=== PATIENT | male | born 1985 | race African-American/Black ===

== ENCOUNTER 2024-12-09 11:52 | Inpatient (IN) | payer MEDICAID, OTHER ==
[~2024-12-09] VITALS: Ht 175.3 cm; Wt 120.1 kg
--- NOTE | 2024-12-09 13:07 | ED.PDOC ---
History of Present Illness HPI Comments 39-year-old male presents to the ER with primary care history of hypertension in the chief complaint of high blood pressure. Reports on having high blood pressure for the past three days associated with dizziness, neck pain and a headache. His PCP is Dr. Alcantar in his and has a an appointment tomorrow but stated that the pain was so severe he went to urgent care and they informed him to come to the ER. Patient notes the he has been taking his prescribed medications per not working and thinks I need a higher dose . Denies chills, fever, N/V/D, SOB, CP. No other associated symptoms, modifiers, recent injuries or sick contacts present at this time. Chief Complaint: High Blood Pressure Time Seen by MD: 13:05 Reviewed Notes: Nurses Notes, Medications, Allergies Allergies: Coded Allergies: NO KNOWN ALLERGIES (Unverified , 12/09/24) Information Source: Patient Mode of Arrival: Ambulatory Severity: Moderate Timing: Days Duration: Since onset, Days Prehospital treatment: None Past Medical History PAST MEDICAL HISTORY: HTN, Denies Surgical History: Denies all surgeries Family History Family History: Reviewed,noncontributory to illness, Unknown Social History Smoker: Non-Smoker Alcohol: Denies ETOH Use Drugs: Denies Drug Use Lives In: Home Constitutional: denies: chills, diaphoresis, fatigue, fever, malaise, sweats, weakness, others EENTM: denies: blurred vision, double vision, ear bleeding, ear discharge, ear drainage, ear pain, ear ringing, eye pain, eye redness, hearing loss, mouth pain, mouth swelling, nasal discharge, nose bleeding, nose congestion, nose pain, photophobia, tearing, throat pain, throat swelling, voice changes, others Respiratory: denies: cough, hemoptysis, orthopnea, SOB at rest, shortness of breath, SOB with excertion, stridor, wheezing, others Cardiovascular: denies: chest pain, dizzy spells, diaphoresis, Dyspnea on exertion, edema, irregular heart beat, left arm pain, lightheadedness, palpitations, PND, syncope, others Gastrointestinal: denies: abdomen distended, abdominal pain, blood streaked bowels, constipated, diarrhea, dysphagia, difficulty swallowing, hematemesis, melena, nausea, poor appetite, poor fluid intake, rectal bleeding, rectal pain, vomiting, others Genitourinary: denies: burning, dysuria, flank pain, frequency, hematuria, incontinence, penile discharge, penile sore, pain, testicle pain, testicle swelling, urgency, others Neurological: reports: dizziness, headache; denies: fainting, left sided numbness, left sided weakness, numbness, paresthesia, pre-existing deficit, right sided numbness, right sided weakness, seizure, speech problems, tingling, tremors, weakness, others Musculoskeletal: reports: neck pain; denies: back pain, gout, joint pain, joint swelling, muscle pain, muscle stiffness, others Integumetry: denies: bruises, change in color, change in hair/nails, dryness, laceration, lesions, lumps, rash, wounds, others Allergic/Immunocompromised: denies: Difficulty Healing, Frequent Infections, Hives, Itching, others Hematologic/Lymphatic: denies: anemia, blood clots, easy bleeding, easy bruising, swollen glands, others Endocrine: denies: excessive hunger, excessive sweating, excessive thirst, excessive urination, flushing, intolerance to cold, intolerance to heat, unexplained weight gain, unexplained weight loss, others Psychiatric: denies: anxiety, bipolar disorder, depression, hopeless, panic disorder, schizophrenia, sleepless, suicidal, others All Other Systems: Reviewed and Negative Physical Exam General Appearance: No Apparent Distress, Normal HEENT: Normal ENT Inspection, Pharynx Normal, TMs Normal Neck: Full Range of Motion, Non-Tender, Normal, Normal Inspection Respiratory: Chest Non-Tender, Lungs Clear, No Accessory Muscle Use, No Respiratory Distress, Normal Breath Sounds Cardiovascular: No Edema, No JVD, No Murmur, No Gallop, Normal Peripheral Pulses, Regular Rate/Rhythm Breast Exam: Deferred Gastrointestinal: No Organomegaly, Non Tender, No Pulsatile Mass, Normal Bowel Sounds, Soft Genitalia: Deferred Pelvic: Deferred Rectal: Deferred Extremities: No calf tenderness, Normal capillary refill, Normal inspection, Normal range of motion, Non-tender, No pedal edema Musculoskeletal : Apperance: Normal Neurologic: Alert, watch dial stoner II-XII nml as Tested, No Motor Deficits, Normal Affect, Normal Mood, No Sensory Deficits Cerebellar Function: Normal Reflexes: Normal Skin: Dry, Normal Color, Warm Lymphatic: No Adenopathy Was a procedure done? Was a procedure done?: No Differential Dx Considerations may include: ACS, CVA, hypertensive emergency, electrolyte mi, infectious etiology X-Ray, Labs, Meds, VS Vital Signs Date Time Temp Pulse Resp B/P (MAP) Pulse Ox O2 Delivery O2 Flow Rate FiO2 12/09/24 15:09 159/110 12/09/24 15:05 98 18 97 Room Air 12/09/24 14:47 98 18 159/110 (126) 97 169/105 (126) 12/09/24 11:54 98.3 109 18 157/103 95 98.3 151/100 Lab Test 12/09/24 15:14 12/09/24 14:27 12/09/24 13:29 Range/Units Urine Color Yellow Yellow Urine Clarity Clear Clear Urine pH 5.5 5.0-9.0 Urine Specific [place] 1.026 1.001-1.035 Urine Protein Trace H Negative Urine Ketones Trace Negative Urine Blood Negative Negative /uL Urine Nitrite Negative Negative Urine Bilirubin Negative Negative Urine Urobilinogen Normal Negative mg/dL Urine Leukocyte Esterase Negative Negative /uL Urine RBC 1 0 - 3 /hpf Urine Microscopic WBC 5 H 0-3 /HPF Urine Squamous Epithelial Cells Few <5 /hpf Urine Bacteria None seen None Seen /hpf Urine Mucus Few None Seen Urine Glucose Normal Normal mg/dL Troponin I High Sensitivity 5 3 L </=54 ng/L White Blood Count 15.6 H 4.4-10.8 10^3/uL Red Blood Count 6.32 H 4.5-5.90 10^6/uL Hemoglobin 17.5 13.5-17.5 g/dL Hematocrit 50.2 41.0-53.0 % Mean Corpuscular Volume 79.4 L 80.0-100.0 fL Mean Corpuscular Hemoglobin 27.7 L 28.0-32.0 pg Mean Corpuscular Hemoglobin Concent 34.9 32.0-36.0 g/dL Red Cell Distribution Width 14.9 H 11.8-14.3 % Platelet Count 320 140-450 10^3/uL Mean Platelet Volume 7.7 6.9-10.8 fL Neutrophils (%) (Auto) 62.0 37.0-80.0 % Lymphocytes (%) (Auto) 26.7 10.0-50.0 % Monocytes (%) (Auto) 7.0 0.0-12.0 % Eosinophils (%) (Auto) 3.1 0.0-7.0 % Basophils (%) (Auto) 1.2 0.0-2.0 % Neutrophils # (Auto) 9.7 H 1.6-8.6 10 ^3/uL Lymphocytes # (Auto) 4.2 0.4-5.4 10 ^3/uL Monocytes # (Auto) 1.1 0-1.3 10 ^3/uL Eosinophils # (Auto) 0.5 0-0.8 10 ^3/uL Basophils # (Auto) 0.2 0-0.2 10 ^3/uL Nucleated Red Blood Cells 0.5 % Sodium Level 142 136-145 mmol/L Potassium Level 3.6 3.5-5.1 mmol/L Chloride Level 108 H 98-107 mmol/L Carbon Dioxide Level 26 20-31 mmol/L Anion Gap 8 5-15 Blood Urea Nitrogen 10 9-23 mg/dL Creatinine 1.36 H 0.700-1.30 mg/dL Glomerular Filtration Rate Calc 68 >90 mL/min BUN/Creatinine Ratio 7.4 L 10.0-20.0 Serum Glucose 87 74-106 mg/dL Calcium Level 9.6 8.7-10.4 mg/dL Current Medications Medications (Trade) Dose Ordered Sig/Poonam Route Start Time Stop Time Status Last Admin Hydralazine HCl (Apresoline Injection) 20 mg ONCE ONCE IV 12/09/24 13:15 12/09/24 13:16 DC 12/09/24 15:09 Acetaminophen (Tylenol Tablet) 650 mg ONCE ONCE PO 12/09/24 16:00 12/09/24 16:01 DC 12/09/24 16:09 Time of 1ST Reevaluation: 13:35 Reevaluation 1ST: Unchanged Patient Education/Counseling: Diagnosis, Treatment, Prognosis Family Education/Counseling: No Family Present SEPSIS Sepsis Screen Date sepsis recognized/suspect: Dec 09, 2024 Time Sepsis recognized/suspect: 1154 Recent Procedure: No On Antibiotic Therapy: No Respiratory Rate >20: No Heart Rate >90: Yes Temp<36 C (96.8 F) or >38.3 C: No SBP <90 or MAP <65 mmHG: No New Acute Mental Status Change: No Is the patient on CPAP, BIPAP,: No Physician Orders Chest Portable (12/09/24 13:09) Head Without Contrast (12/09/24 13:09) Electrocardigram (12/09/24 13:09) Troponin-I Hs (12/09/24 16:09) Electrocardigram (12/09/24 14:09) Electrocardigram (12/09/24 16:09) Vital Signs Date Time Temp Pulse Resp B/P (MAP) Pulse Ox O2 Delivery O2 Flow Rate FiO2 12/09/24 15:09 159/110 12/09/24 15:05 98 18 97 Room Air 12/09/24 14:47 98 18 159/110 (126) 97 169/105 (126) 12/09/24 11:54 98.3 109 18 157/103 95 98.3 151/100 Laboratory Tests Test 12/09/24 13:29 White Blood Count 15.6 10^3/uL (4.4-10.8) H Medications Medications Dose Ordered Sig/Poonam Route Start Time Stop Time Status Last Admin Dose Admin Acetaminophen 650 mg ONCE ONCE PO 12/09/24 16:00 12/09/24 16:01 DC 12/09/24 16:09 Hydralazine HCl 20 mg ONCE ONCE IV 12/09/24 13:15 12/09/24 13:16 DC 12/09/24 15:09 Departure 1 Departure Time of Disposition: 16:27 (Patient presented with hypertension and symptoms concerning for hypertensive emergency. Patient is receiving iv blood pressure medications requiring intensive monitoring. Data: 1. I ordered and reviewed the result of at least 3 labs including a CBC, BMP, and Urinalysis. 2. I independently interpreted the following tests: CT Brain: Which appears benign. EKG which is Normal Sinus RhythmRisk:This patient has a high risk of morbidity due to further diagnostic testing or treatment and may suffer from an acute cardiac disorder. Workup reveals hypertensive emergency and patient should be admitted for further workup. and possible expert consultation. ) Impression: Primary Impression: Hypertensive urgency Additional Impressions: Migraine Acute chest pain Disposition: ADMITTED INPATIENT Admit to: Tele Condition: Guarded Critical Care Note Critical Care Time?: Yes Critical care comment: Hypertensive emergency Authorized and Performed by: Joe Aguillon MD Total critical care time: Approximately 39 minutes Due to a high probability of clinically significant, life threatening deterioration, the patient required my highest level of preparedness to intervene emergently and I personally spent this critical care time directly and personally managing the patient. This critical care time included obtaining a history; examining the patient; pulse oximetry; ordering and review of studies; arranging urgent treatment with development of a management plan; evaluation of patient's response to treatment; frequent reassessment; and, discussions with other providers. This critical care time was performed to assess and manage the high probability of imminent, life-threatening deterioration that could result in multi-organ failure. It was exclusive of separately billable procedures and treating other patients and teaching time. Please see my other sections and the rest of the note for further information on patient assessment and treatment. Stability Stability form required: No I personally scribed for JOE AGUILLON MD ([email or web address]) on 12/09/24 at 13:07. Electronically submitted by Kenji Scanlon ([email or web address]). JOE AGUILLON MD Dec 09, 2024 13:07
--- NOTE | 2024-12-09 13:42 | DVH ---
EXAM: CT HEAD WITHOUT CONTRAST INDICATION: htn TECHNIQUE: CT images of the head were obtained without administration of IV contrast. CT scans at [facility] facility use dose modulation, iterative reconstruction, and/or weight based dosing when appropriate to reduce radiation dose to as low as reasonably achievable. COMPARISON: None FINDINGS: PARENCHYMA: No acute hemorrhage. There is no mass effect, midline shift, or herniation. There is pres ervation of the mos[place] white differentiation. VENTRICLES: No hydrocephalus. EXTRA-AXIAL SPACES: No extra-axial fluid collections. OTHER: The bony structures are intact. Visualized portions of the paranasal sinuses and mastoid air cells are clear. IMPRESSION: 1. No CT evidence of an acute intracranial abnormality.
[2024-12-09 13:46] LABS: Hematocrit 50.2 % (41.0-53.0); Hemoglobin 17.5 g/dL (13.5-17.5); Mean Corpuscular Hemoglobin 27.7 pg (28.0-32.0); Mean Corpuscular Volume 79.4 fL (80.0-100.0); Nucleated Red Blood Cells % 0.5 %
--- NOTE | 2024-12-09 13:51 | DVH ---
EXAM: XY CHEST PORTABLE HISTORY: htn COMPARISON: None TECHNIQUE: Portable AP view of the chest was performed. FINDINGS: No pneumothorax, consolidative infiltrates, or pulmonary edema. The heart is not enlarged. There is t horacic dextroscoliosis. IMPRESSION: No acute intrathoracic process.
[2024-12-09 14:06] LABS: Potassium 3.6 mmol/L (3.5-5.1); Sodium 142 mmol/L (136-145)
[2024-12-09 14:07] LABS: Anion Gap 8 (5-15); Carbon Dioxide 26 mmol/L (20-31)
[2024-12-09 14:08] LABS: Calcium 9.6 mg/dL (8.7-10.4)
[2024-12-09 14:12] LABS: Chloride 108 mmol/L (98-107); Glucose 87 mg/dL (74-106)
[2024-12-09 14:13] LABS: BUN/Creatinine Ratio 7.4 (10.0-20.0); Blood Urea Nitrogen 10 mg/dL (9-23)
[2024-12-09] MEDS: hydrALAZINE HCL 20 MG/ML VL IV ONE (15:09)
[2024-12-09 15:25] LABS: Urine Protein, UAD TRACE (Negative)
[2024-12-09] MEDS: ACETAMINOPHEN 325 MG TAB PO ONE (16:09)
[2024-12-09] MEDS: SODIUM CHLORIDE 0.9% 1,000 ML IV ONE (16:37)
[2024-12-09 18:46] VITALS: PULSE 111; RESP 17; O2SAT 98
[2024-12-09] MEDS ORDERED: ONDANSETRON HCL 4 MG/2 ML VIAL IV PRN (19:30)
[2024-12-09] MEDS ORDERED: TEMAZEPAM 15 MG CAP PO PRN (19:30)
[2024-12-09] MEDS: HYDROcodone-ACET 5/325MG TAB PO ONE (19:46)
[2024-12-09] MEDS: LABETALOL HCL 20 MG/4 ML VL IV ONE (19:49)
[2024-12-09 22:02] LABS: Cannabinoid Screen, Urine Pos (NEGATIVE)
[2024-12-09 22:05] LABS: Amphetamine Screen, Urine Neg (NEGATIVE); Barbiturate Scree,Urine Neg (NEGATIVE); Benzodiazephine Screen, Urine Neg (NEGATIVE); Cocaine Screen, Urine Neg (NEGATIVE); Opiate Scree,Urine Neg (NEGATIVE); Phencyclidine Screen, Urine Neg (NEGATIVE)
--- NOTE | 2024-12-09 22:54 | DVHHP2 ---
History of Present Illness Reason for Visit: Hypertension History of Present Illness 39-year-old male presents for evaluation of hypertension. Patient reports a three day history of uncontrolled hypertension. He reports being compliant with his antihypertensives. He reports having a an appointment with his primary care provider until tomorrow. Today he became really dizzy with a headache so he presented for further evaluation. Denies chest pain or shortness for breath. Past Medical History Hypertension Past Surgical History Denies Family History Noncontributory Smoke: No ALCOHOL: none Drugs: None Lives: with Family Review of Systems Review of Systems Review of systems are currently negative otherwise addressed in HPI. Allergies: Coded Allergies: NO KNOWN ALLERGIES (Unverified , 12/09/24) Medications Current Medications Medications Dose Ordered Sig/Poonam Route Start Time Stop Time Status Last Admin Dose Admin Clonidine HCl 0.1 mg BID PO 12/09/24 22:00 12/09/24 22:18 0.1 MG Amlodipine Besylate 10 mg DAILY PO 12/10/24 10:00 Temazepam 15 mg QHSP PRN PO 12/09/24 19:30 Ondansetron HCl 4 mg Q4HP PRN IV 12/09/24 19:30 Hydralazine HCl 10 mg Q6HP PRN IV 12/09/24 19:30 Exam Vital Signs Vital Signs Date Time Temp Pulse Resp B/P (MAP) Pulse Ox O2 Delivery O2 Flow Rate FiO2 12/09/24 22:18 166/100 12/09/24 20:50 76 12/09/24 20:24 98.6 20 98 98.6 12/09/24 18:48 Room Air* 0 21 Exam Gen: 39-year-old male in mild distress. Skin: Warm, dry, normal color and texture, no rash. HEENT: Normocephalic atraumatic, mucous membranes moist and pink. Neck: Cervical and supraclavicular nodes normal without enlargement, trachea is midline, thyroid gland is normal without masses. Pulmonary: Clear to auscultation and percussion bilaterally. Cardiac: Regular rate and rhythm. No murmur Abdomen: Soft, nontender, nondistended, bowel sounds present all 4 quadrants, no guarding, no rigidity, no organomegaly. Extremities: No cyanosis, clubbing, no edema Neuro: Cranial nerves II through XII grossly intact, normal affect and speech, no focal motor deficits. Labs/Xrays ORDERING PHYSICIAN: JOE CARLOS MD PROCEDURE(s): CXRP - CHEST PORTABLE REASON: htn ORDER NUMBER(s): [id number], ACCESSION NUMBER(s): [id number] EXAM: XY CHEST PORTABLE HISTORY: htn COMPARISON: None TECHNIQUE: Portable AP view of the chest was performed. FINDINGS: No pneumothorax, consolidative infiltrates, or pulmonary edema. The heart is not enlarged. There is thoracic dextroscoliosis. IMPRESSION: No acute intrathoracic process. RING PHYSICIAN: JOE CARLOS MD PROCEDURE(s): HWOCT - HEAD WITHOUT CONTRAST REASON: htn ORDER NUMBER(s): [id number], ACCESSION NUMBER(s): [id number] EXAM: CT HEAD WITHOUT CONTRAST INDICATION: htn TECHNIQUE: CT images of the head were obtained without administration of IV contrast. CT scans at this facility use dose modulation, iterative reconstruction, and/or weight based dosing when appropriate to reduce radiation dose to as low as reasonably achievable. COMPARISON: None FINDINGS: PARENCHYMA: No acute hemorrhage. There is no mass effect, midline shift, or herniation. There is preservation of the moscoso white differentiation. VENTRICLES: No hydrocephalus. EXTRA-AXIAL SPACES: No extra-axial fluid collections. OTHER: The bony structures are intact. Visualized portions of the paranasal sinuses and mastoid air cells are clear. IMPRESSION: 1. No CT evidence of an acute intracranial abnormality. Labs Test 12/09/24 21:37 12/09/24 19:22 12/09/24 16:40 12/09/24 15:14 Range/Units Urine Opiates Screen Neg NEGATIVE Urine Fentanyl Screen Neg NEGATIVE Urine Barbiturates Screen Neg NEGATIVE Urine Phencyclidine Screen Neg NEGATIVE Urine Amphetamines Screen Neg NEGATIVE Urine Benzodiazepines Screen Neg NEGATIVE Urine Cocaine Screen Neg NEGATIVE Urine Cannabinoids Screen Pos NEGATIVE Lactic Acid Level 1.5 0.4-2.0 mmol/L Magnesium Level 1.9 1.6-2.6 mg/dL Troponin I High Sensitivity 3 L </=54 ng/L Urine Color Yellow Yellow Urine Clarity Clear Clear Urine pH 5.5 5.0-9.0 Urine Specific [place] 1.026 1.001-1.035 Urine Protein Trace H Negative Urine Ketones Trace Negative Urine Blood Negative Negative /uL Urine Nitrite Negative Negative Urine Bilirubin Negative Negative Urine Urobilinogen Normal Negative mg/dL Urine Leukocyte Esterase Negative Negative /uL Urine RBC 1 0 - 3 /hpf Urine Microscopic WBC 5 H 0-3 /HPF Urine Squamous Epithelial Cells Few <5 /hpf Urine Bacteria None seen None Seen /hpf Urine Mucus Few None Seen Urine Glucose Normal Normal mg/dL Test 12/09/24 13:29 Range/Units White Blood Count 15.6 H 4.4-10.8 10^3/uL Red Blood Count 6.32 H 4.5-5.90 10^6/uL Hemoglobin 17.5 13.5-17.5 g/dL Hematocrit 50.2 41.0-53.0 % Mean Corpuscular Volume 79.4 L 80.0-100.0 fL Mean Corpuscular Hemoglobin 27.7 L 28.0-32.0 pg Mean Corpuscular Hemoglobin Concent 34.9 32.0-36.0 g/dL Red Cell Distribution Width 14.9 H 11.8-14.3 % Platelet Count 320 140-450 10^3/uL Mean Platelet Volume 7.7 6.9-10.8 fL Neutrophils (%) (Auto) 62.0 37.0-80.0 % Lymphocytes (%) (Auto) 26.7 10.0-50.0 % Monocytes (%) (Auto) 7.0 0.0-12.0 % Eosinophils (%) (Auto) 3.1 0.0-7.0 % Basophils (%) (Auto) 1.2 0.0-2.0 % Neutrophils # (Auto) 9.7 H 1.6-8.6 10 ^3/uL Lymphocytes # (Auto) 4.2 0.4-5.4 10 ^3/uL Monocytes # (Auto) 1.1 0-1.3 10 ^3/uL Eosinophils # (Auto) 0.5 0-0.8 10 ^3/uL Basophils # (Auto) 0.2 0-0.2 10 ^3/uL Nucleated Red Blood Cells 0.5 % Sodium Level 142 136-145 mmol/L Potassium Level 3.6 3.5-5.1 mmol/L Chloride Level 108 H 98-107 mmol/L Carbon Dioxide Level 26 20-31 mmol/L Anion Gap 8 5-15 Blood Urea Nitrogen 10 9-23 mg/dL Creatinine 1.36 H 0.700-1.30 mg/dL Glomerular Filtration Rate Calc 68 >90 mL/min BUN/Creatinine Ratio 7.4 L 10.0-20.0 Serum Glucose 87 74-106 mg/dL Calcium Level 9.6 8.7-10.4 mg/dL SEPSIS Sepsis Screen Date sepsis recognized/suspect: Dec 09, 2024 Time Sepsis recognized/suspect: 1847 Recent Procedure: No On Antibiotic Therapy: No Respiratory Rate >20: No Heart Rate >90: No Temp<36 C (96.8 F) or >38.3 C: No SBP <90 or MAP <65 mmHG: No New Acute Mental Status Change: No Is the patient on CPAP, BIPAP,: No Physician Orders Art Therapy Specialist (12/09/24 ) Clonidine Hcl Tablet (Catapres Tablet) (12/09/24 22:00) Amlodipine Tablet (Norvasc Tablet) (12/10/24 10:00) Basic Metabolic Panel (12/10/24 04:00) Admit (12/09/24 19:16) Temazepam (Restoril) (12/09/24 19:30) Ondansetron Hcl (Zofran) (12/09/24 19:30) Cardiac Diet-2gna,Lofat,Lochol (12/10/24 Breakfast) Echo 2d Mode Cardiac Dop (12/09/24 19:16) Condition: Stable (12/09/24 19:16) Bedrest With Bathroom Privileg (12/09/24 19:16) Hydralazine Injection (Apresoline Inject (12/09/24 19:30) Vital Signs Date Time Temp Pulse Resp B/P (MAP) Pulse Ox O2 Delivery O2 Flow Rate FiO2 12/09/24 22:18 166/100 12/09/24 20:50 76 156/94 12/09/24 20:24 98.6 97 20 156/99 (118) 98 98.6 12/09/24 19:51 109 18 165/110 (128) 96 12/09/24 19:49 109 165/110 12/09/24 18:48 98 Room Air* 0 21 12/09/24 18:46 111 17 98 Room Air* 0 21 12/09/24 17:57 101 18 158/98 (118) 96 12/09/24 15:09 159/110 12/09/24 15:05 98 18 97 Room Air Laboratory Tests Test 12/09/24 13:29 12/09/24 19:22 White Blood Count 15.6 10^3/uL (4.4-10.8) H Lactic Acid Level 1.5 mmol/L (0.4-2.0) Medications Medications Dose Ordered Sig/Poonam Route Start Time Stop Time Status Last Admin Dose Admin Acetaminophen 650 mg ONCE ONCE PO 12/09/24 16:00 12/09/24 16:01 DC 12/09/24 16:09 650 MG Acetaminophen/ Hydrocodone Bitart 1 tab ONCE ONCE PO 12/09/24 19:15 12/09/24 19:23 DC 12/09/24 19:46 1 TAB Ceftriaxone Sodium 50 ml @ 100 mls/hr ONCE ONCE IV 12/09/24 19:15 12/09/24 19:44 DC 12/09/24 19:51 100 MLS/HR Clonidine HCl 0.1 mg BID PO 12/09/24 22:00 12/09/24 22:18 0.1 MG Hydralazine HCl 20 mg ONCE ONCE IV 12/09/24 13:15 12/09/24 13:16 DC 12/09/24 15:09 20 MG Labetalol HCl 5 mg ONCE ONCE IV 12/09/24 19:15 12/09/24 19:23 DC 12/09/24 19:49 5 MG Sodium Chloride 1,000 ml @ 1,000 mls/hr Q1H ONCE IV 12/09/24 16:45 12/09/24 17:44 DC 12/09/24 16:37 1,000 MLS/HR Assessment/Plan Assessment/Plan Assessment Hypertensive crisis Acute kidney injury Plan Admit the patient to Med surge to the hospitalist As needed antihypertensives Echocardiogram pending Resume home medications Continue treatment per orders. Plan discussed with: Patient My Orders Orders - ANNA SANTIAGOCNP Procedure Category Date Status Time Clonidine Hcl Tablet PHA 12/09/24 In Process (Catapres Tablet) 22:00 Amlodipine Tablet PHA 12/10/24 In Process (Norvasc Tablet) 10:00 Basic Metabolic Panel LAB 12/10/24 Verified 04:00 Admit ADMIT 12/09/24 Transmitted 19:16 Temazepam (Restoril) PHA 12/09/24 In Process 19:30 Ondansetron Hcl PHA 12/09/24 In Process (Zofran) 19:30 Cardiac DIET 12/10/24 Transmitted Diet-2gna,Lofat,Lochol Breakfast Echo 2d Mode Cardiac US 12/09/24 Logged DOP 19:16 Condition: Stable DAPHNIE 12/09/24 In Process 19:16 Bedrest With Bathroom DAPHNIE 12/09/24 In Process Privileg 19:16 Hydralazine Injection PHA 12/09/24 In Process (Apresoline Inject 19:30 Date of Service: Dec 09, 2024 Billing Provider: ANNA SANTIAGO Common Visit Codes: [id number] INP/OBS CARE (HIGH) ANNA SANTIAGO Dec 09, 2024 22:54
[2024-12-09] MEDS: hydrALAZINE HCL 20 MG/ML VL IV PRN (23:39)
[2024-12-09] MEDS: MIRTAZAPINE 30 MG TAB PO SCH (23:40)
[2024-12-10] VITALS (7 sets, daily range): BP systolic 119–161; BP diastolic 69–98; PULSE 77–99; RESP 16–19; TEMP 98–98.4; O2SAT 96–100
[2024-12-10 04:48] LABS: Sodium 142 mmol/L (136-145)
[2024-12-10 04:49] LABS: Anion Gap 11 (5-15); Carbon Dioxide 23 mmol/L (20-31)
[2024-12-10 04:54] LABS: BUN/Creatinine Ratio 6.4 (10.0-20.0); Glucose 97 mg/dL (74-106)
[2024-12-10 05:09] LABS: Blood Urea Nitrogen 7 mg/dL (9-23); Calcium 8.6 mg/dL (8.7-10.4); Chloride 108 mmol/L (98-107); Potassium 3.1 mmol/L (3.5-5.1)
[2024-12-10] MEDS ORDERED: MIRT-94 PO (15:44)
[2024-12-10] MEDS ORDERED: CLON0.1T PO (15:44)
[2024-12-10] MEDS ORDERED: BACL20TA PO (15:44)
[2024-12-10] MEDS ORDERED: AMLO1TAB23 PO (15:44)
[2024-12-10] MEDS ORDERED: IBUP-1456 PO (15:44)
--- NOTE | 2024-12-10 18:07 | DVHPN2 ---
Subjective I am assuming the care of the patient from today onwards who was under the care of the hospitalist team. Patient is currently complaining of headache. Changes from previous H/P or p: No Changes Objective Vitals Vital Signs Date Time Temp Pulse Resp B/P (MAP) Pulse Ox O2 Delivery O2 Flow Rate FiO2 12/10/24 17:36 144/89 12/10/24 13:00 98.0 84 18 100 98.0 12/10/24 08:00 Room Air* 0 21 Intake/Output Intake and Output 12/10/24 07:00 Intake Total 1000 ml Balance 1000 ml IV Total 1000 ml Exam HEENT pupils are reactive Neck is supple CV is S1-S2 regular rate and rhythm Respiratory diminished breath sound bases GI posterior bowel sound Extremity no edema PERSONNEL MONITOR no motor deficit Medications Current Medications Medications Dose Ordered Sig/Poonam Route Start Time Stop Time Status Last Admin Dose Admin Amlodipine Besylate 10 mg DAILY PO 12/10/24 10:00 12/10/24 09:32 10 MG Temazepam 15 mg QHSP PRN PO 12/09/24 19:30 Ondansetron HCl 4 mg Q4HP PRN IV 12/09/24 19:30 Hydralazine HCl 10 mg Q6HP PRN IV 12/09/24 19:30 12/09/24 23:39 10 MG Mirtazapine 30 mg HS PO 12/09/24 23:30 12/09/24 23:40 30 MG Clonidine HCl 0.1 mg TID PO 12/10/24 17:15 12/10/24 17:36 0.1 MG Acetaminophen 650 mg Q6HP PRN PO 12/10/24 17:15 Laboratory Results Laboratory Tests 12/09/24 13:29 12/10/24 03:53 Chemistry Test 12/10/24 03:53 Calcium Level 8.6 mg/dL (8.7-10.4) L HgA1c, TSH Test 12/09/24 19:22 Thyroid Stimulating Hormone (TSH) 1.63 uIU/mL (0.55-4.78) Urinalysis Test 12/09/24 15:14 Urine Color Yellow (Yellow) Urine Clarity Clear (Clear) Urine pH 5.5 (5.0-9.0) Urine Specific [place] 1.026 (1.001-1.035) Urine Protein Trace (Negative) H Urine Ketones Trace (Negative) Urine Blood Negative /uL (Negative) Urine Nitrite Negative (Negative) Urine Bilirubin Negative (Negative) Urine Urobilinogen Normal mg/dL (Negative) Urine Leukocyte Esterase Negative /uL (Negative) Urine RBC 1 /hpf (0 - 3) Urine Microscopic WBC 5 /HPF (0-3) H Urine Squamous Epithelial Cells Few /hpf (<5) Urine Bacteria None seen /hpf (None Seen) Urine Mucus Few (None Seen) Urine Glucose Normal mg/dL (Normal) Assessment/Plan Assessment/Plan 79-year-old male with a known history of hypertension presented to the hospital with a headache and uncontrolled blood pressure found to have 1. Hypertensive urgency 2. Cephalgia 3. Hypokalemia -2D echo cardiology consultation, continue current meds including clonidine -replace electrolytes. Plan discussed with: Patient My Orders Orders - TONIE KAUFFMAN MD Procedure Category Date Status Time Clonidine Hcl Tablet PHA 12/10/24 In Process (Catapres Tablet) 17:15 Acetaminophen Tablet PHA 12/10/24 In Process (Tylenol Tablet) 17:15 Date of Service: Dec 10, 2024 Billing Provider: TONIE KAUFFMAN MD Common Visit Codes: [id number] INP/OBS CARE(MOD) TONIE KAUFFMAN MD Dec 10, 2024 18:07
[2024-12-10] MEDS: POTASSIUM EFFERVESENT TAB 25 MEQ PO ONE (18:33)
[2024-12-10] MEDS: ACETAMINOPHEN 325 MG TAB PO PRN (23:18)
[2024-12-11 01:00] VITALS: BP 145/95; PULSE 83; RESP 19; TEMP 98; O2SAT 99
[2024-12-11 05:00] VITALS: BP 123/85; PULSE 74; RESP 18; TEMP 97.9; O2SAT 100
[2024-12-11 07:03] LABS: Hematocrit 49.2 % (41.0-53.0); Hemoglobin 16.7 g/dL (13.5-17.5); Mean Corpuscular Hemoglobin 27.4 pg (28.0-32.0); Mean Corpuscular Volume 80.8 fL (80.0-100.0); Nucleated Red Blood Cells % 0.0 %
[2024-12-11] MEDS ORDERED: TIRZ2.5I2 SC (07:12)
[2024-12-11 07:13] LABS: Calcium 9.3 mg/dL (8.7-10.4); Potassium 3.6 mmol/L (3.5-5.1); Sodium 142 mmol/L (136-145)
[2024-12-11 07:14] LABS: Anion Gap 9 (5-15); Carbon Dioxide 26 mmol/L (20-31)
[2024-12-11 07:19] LABS: BUN/Creatinine Ratio 6.3 (10.0-20.0); Glucose 92 mg/dL (74-106)
[2024-12-11 07:21] LABS: Blood Urea Nitrogen 7 mg/dL (9-23); Chloride 107 mmol/L (98-107)
[2024-12-11 08:00] VITALS: PULSE 77; RESP 20; O2SAT 98
[2024-12-11 09:00] VITALS: BP 133/89; PULSE 77; RESP 20; TEMP 98.9; O2SAT 98
[2024-12-11 13:00] VITALS: BP 145/86; PULSE 76; RESP 20; TEMP 98.6; O2SAT 98
[2024-12-11] MEDS ORDERED: CLON0.2T PO (15:48)
--- NOTE | 2024-12-11 15:53 | DVHDS2 ---
Discharge Summary Date of Admission Dec 09, 2024 at 19:16 Date of Discharge: Dec 11, 2024 Labs/Diagnostic Data: Laboratory Results Test 12/11/24 05:29 12/09/24 21:37 12/09/24 19:22 12/09/24 16:40 White Blood Count 10.5 10^3/uL (4.4-10.8) Red Blood Count 6.08 10^6/uL (4.5-5.90) Hemoglobin 16.7 g/dL (13.5-17.5) Hematocrit 49.2 % (41.0-53.0) Mean Corpuscular Volume 80.8 fL (80.0-100.0) Mean Corpuscular Hemoglobin 27.4 pg (28.0-32.0) Mean Corpuscular Hemoglobin Concent 34.0 g/dL (32.0-36.0) Red Cell Distribution Width 14.8 % (11.8-14.3) Platelet Count 283 10^3/uL (140-450) Mean Platelet Volume 8.1 fL (6.9-10.8) Neutrophils (%) (Auto) 56.7 % (37.0-80.0) Lymphocytes (%) (Auto) 31.4 % (10.0-50.0) Monocytes (%) (Auto) 7.1 % (0.0-12.0) Eosinophils (%) (Auto) 4.1 % (0.0-7.0) Basophils (%) (Auto) 0.7 % (0.0-2.0) Neutrophils # (Auto) 5.9 10 ^3/uL (1.6-8.6) Lymphocytes # (Auto) 3.3 10 ^3/uL (0.4-5.4) Monocytes # (Auto) 0.7 10 ^3/uL (0-1.3) Eosinophils # (Auto) 0.4 10 ^3/uL (0-0.8) Basophils # (Auto) 0.1 10 ^3/uL (0-0.2) Nucleated Red Blood Cells 0.0 % Sodium Level 142 mmol/L (136-145) Potassium Level 3.6 mmol/L (3.5-5.1) Chloride Level 107 mmol/L (98-107) Carbon Dioxide Level 26 mmol/L (20-31) Anion Gap 9 (5-15) Blood Urea Nitrogen 7 mg/dL (9-23) Creatinine 1.12 mg/dL (0.700-1.30) Glomerular Filtration Rate Calc 86 mL/min (>90) BUN/Creatinine Ratio 6.3 (10.0-20.0) Serum Glucose 92 mg/dL (74-106) Calcium Level 9.3 mg/dL (8.7-10.4) Urine Opiates Screen Neg (NEGATIVE) Urine Fentanyl Screen Neg (NEGATIVE) Urine Barbiturates Screen Neg (NEGATIVE) Urine Phencyclidine Screen Neg (NEGATIVE) Urine Amphetamines Screen Neg (NEGATIVE) Urine Benzodiazepines Screen Neg (NEGATIVE) Urine Cocaine Screen Neg (NEGATIVE) Urine Cannabinoids Screen Pos (NEGATIVE) Lactic Acid Level 1.5 mmol/L (0.4-2.0) Thyroid Stimulating Hormone (TSH) 1.63 uIU/mL (0.55-4.78) Magnesium Level 1.9 mg/dL (1.6-2.6) Troponin I High Sensitivity 3 ng/L (</=54) Test 12/09/24 15:14 Urine Color Yellow (Yellow) Urine Clarity Clear (Clear) Urine pH 5.5 (5.0-9.0) Urine Specific Hector 1.026 (1.001-1.035) Urine Protein Trace (Negative) Urine Ketones Trace (Negative) Urine Blood Negative /uL (Negative) Urine Nitrite Negative (Negative) Urine Bilirubin Negative (Negative) Urine Urobilinogen Normal mg/dL (Negative) Urine Leukocyte Esterase Negative /uL (Negative) Urine RBC 1 /hpf (0 - 3) Urine Microscopic WBC 5 /HPF (0-3) Urine Squamous Epithelial Cells Few /hpf (<5) Urine Bacteria None seen /hpf (None Seen) Urine Mucus Few (None Seen) Urine Glucose Normal mg/dL (Normal) Other Laboratory Tests 12/11/24 05:29 Brief Hx & Hospital Course: 79-year-old male with a known history of hypertension presented to the hospital with a headache and uncontrolled blood pressure found to have hypertensive urgency. Also complaining of headache. CT head was negative. Patient denies any focal deficit. Patient's blood pressure is better controlled now. Patient will be given clonidine 0.2 mg p.o. twice a day, discontinue clonidine 0.1 b.i.d., resume amlodipine. Patient is currently stable to be discharged. Condition at Discharge: Stable Final Diagnosis/Problems List 79-year-old male with a known history of hypertension presented to the hospital with a headache and uncontrolled blood pressure found to have 1. Hypertensive urgency, improved 2. Cephalgia , resolved 3. Diabetes mellitus type 2 Discharge Disposition: Home SNF Discharge Will this Physician continue t: No Discharge Instruct/Medications Diet: Cardiac 2g Na,low cholest Activity: No Restrictions, As Tolerated Follow Up/Referral: Please follow up with the PCP in one week Follow up with the Cardiology as an outpatient in 1-2 weeks Medications: Resume medication as reconciled and prescribed. New Medications: Clonidine Hydrochloride (Clonidine Hcl) 0.2 Mg Tab 1 TAB PO BID, #60 TAB 5 Refills Continued Medications: Amlodipine Besylate (Amlodipine Besylate) 10 Mg Tab 1 TAB PO DAILY, #30 TAB 5 Refills Baclofen (Baclofen) 20 Mg Tab 10 MG PO TID, TAB Mirtazapine (Remeron) 30 Mg Tab 1 TAB PO QPM, #30 TAB 1 Refill Tirzepatide (Zepbound) 2.5 Mg/0.5 Ml Inj 2.5 MG SC QWEEKLY, INJ Discontinued Medications: Clonidine Hydrochloride (Clonidine Hcl) 0.1 Mg Tab 0.1 MG PO BID, TAB Ibuprofen (Ibuprofen) 800 Mg Tab 1 TAB PO BIDPRN, #90 TAB 1 Refill Scheduled Amlodipine Besylate (Amlodipine Besylate), 1 TAB PO DAILY, (Reported) Baclofen (Baclofen), 10 MG PO TID, (Reported) Clonidine Hydrochloride (Clonidine Hcl), 0.1 MG PO BID, (Reported) Clonidine Hydrochloride (Clonidine Hcl), 1 TAB PO BID Ibuprofen (Ibuprofen), 1 TAB PO BIDPRN, (Reported) Mirtazapine (Remeron), 1 TAB PO QPM, (Reported) Tirzepatide (Zepbound), 2.5 MG SC QWEEKLY, (Reported) Discharge Statement: "Patient was advised to return to the ER or call 911 if any headaches, dizziness, shortness of breath, chest pain, abdominal pain, bleeding, fevers, or worsening of medical condition. Patient was counseled about treatment plan, medications, possible side effects, patientverbalized understanding. All questions were answered to the best of my ability. This discharge took greater then 30 minutes in planning, reviewing documentation, counseling the patient, and discussing with other team members." ASSESSMENT ASSESSMENT Assessment 79-year-old male with a known history of hypertension presented to the hospital with a headache and uncontrolled blood pressure found to have 1. Hypertensive urgency, improved 2. Cephalgia , resolved 3. Hypokalemia, resolved -2D echo cardiology consultation, continue current meds including clonidine -replace electrolytes. Date of Service: Dec 11, 2024 Billing Provider: TONIE KAUFFMAN MD Common Visit Codes: 14038-TRA/OBS DISCH DAY >30min TONIE KAUFFMAN MD Dec 11, 2024 15:53
--- NOTE | 2024-12-12 00:03 | DVHSR ---
APPROVED REPORT EXAM: Two-dimensional and M-mode echocardiogram with Doppler and color Doppler. Blood Pressure: 135/87 mmHg INDICATION htn RISK FACTORS Obesity: Height: 5'9, Weight: 264 DIMENSIONS LVDd3.9 (3.8-5.7cm)LA (2D)3.2 (1.9-4.0cm)Aortic Root3.6 (2.0-3.7cm) LVDs2.7 (2.5-4.0cm)LA (MM) (1.9-4.0cm)Aortic Cusp Exc2.1 (1.5-2.0cm) EF (%) 55.0 (55-70%)Rt. Atrium4.0 (1.9-4.0cm)Asc. Aorta cm IVSd1.4 (0.7-1.1cm)RV (D)2.5 (1.8-2.4cm) PWd1.1 (0.7-1.1cm) Mitral Valve MitralMitral Stenosis E wave0.64m/sMV Mean GR.mmHg A wave0.67m/sMV Peak GR.mmHg E/A ratio1.02D MVAcm2 DECEL [id number] 1/2 Timems Aortic Valve Aortic ValveAortic Stenosis V10.92m/Wiley Mean GR.4mmHg V21.26m/Wiley Peak GR.6mmHg LVOT Diameter2.5 (1.8-2.4cm)Doppler AVA3.58cm2 Pulmonic Valve V20.95m/s Conclusion MILD LVH AND MILD LV DIASTOLIC DYSFUNCTION LV EF IS 65% DYSKINEIS OF IVS NORMAL VALVES RV STRAIN PATTERN NO EFFUSION
== END 2024-12-11 16:30 | disposition home or self-care (01) | DRG 199 ==
LOC: ER 11:52 → OVERFLOW 19:16 → WEST WING 12-10 23:49
PROVIDERS: ADMIT Internal Medicine; ATTEND Internal Medicine
DX: I16.0 Hypertensive urgency (principal); N17.0 Acute kidney failure with tubular necrosis; E87.6 Hypokalemia; I10 Essential (primary) hypertension; G43.909 Migraine, unspecified, not intractable, without status migrainosus; E11.9 Type 2 diabetes mellitus without complications; Z79.899 Other long term (current) drug therapy
CPT/HCPCS: 36415; 70450; 71045; 80048; 80307; 81001; 83605; 83735; 84443; 84484; 85025; 93306; 96365; 96375; 99291; G0378

== ENCOUNTER 2025-01-17 16:16 | Emergency (ER) | payer MEDICAID ==
[~2025-01-17] VITALS: Ht 175.3 cm; Wt 119.9 kg
[~2025-01-17 16:16] MED LIST: AMLO1TAB23 PO; BACL20TA PO; CLON0.2T PO; MIRT-94 PO; TIRZ2.5I2 SC
--- NOTE | 2025-01-17 17:14 | ED.PDOC ---
History of Present Illness HPI Comments 39 y/o M, presents to the ED for CC of flu-like symptoms. Patient states, he has been flu-like symptoms including: excessive diaphoresis and runny nose x1week. Patient denies fever, chills, headache, nausea, or vomiting. No other symptoms or modifying factors are present at this time. Chief Complaint: Flu like Time Seen by MD: 17:00 Reviewed Notes: Nurses Notes, Medications, Allergies Allergies: Coded Allergies: NO KNOWN ALLERGIES (Unverified , 12/09/24) Home Meds Active Scripts Promethazine HCl (Promethazine Hydrochlorid) 6.25 Mg/5 Ml Nakia, 12.5 MG PO TID for 10 Days, #300 ML Prov:MARIBELL RASCON MD 01/17/25 Mometasone Furoate (Nasal) (Nasonex 24Hr) 50 Mcg/Act Spr, 50 MCG NA DAILY for 10 Days, #1 SPRAY Prov:MARIBELL RASCON MD 01/17/25 Clonidine Hydrochloride (Clonidine Hcl) 0.2 Mg Tab, 1 TAB PO BID, #60 TAB 5 Refills Prov:TONIE KAUFFMAN MD 12/11/24 Reported Medications Tirzepatide (Zepbound) 2.5 Mg/0.5 Ml Inj, 2.5 MG SC QWEEKLY, INJ 12/11/24 Baclofen (Baclofen) 20 Mg Tab, 10 MG PO TID, TAB 12/10/24 Mirtazapine (REMERON) 30 Mg Tab, 1 TAB PO QPM, #30 TAB 1 Refill 12/10/24 Amlodipine Besylate (Amlodipine Besylate) 10 Mg Tab, 1 TAB PO DAILY, #30 TAB 5 Refills 12/10/24 Information Source: Patient Mode of Arrival: Ambulatory Severity: Moderate Timing: Days, Weeks Duration: Since onset Prehospital treatment: None Past Medical History PAST MEDICAL HISTORY: HTN, Denies Surgical History: Denies all surgeries Family History Family History: Reviewed,noncontributory to illness, Unknown Social History Smoker: Non-Smoker Alcohol: Denies ETOH Use Drugs: Denies Drug Use Lives In: Home Constitutional: reports: sweats; denies: chills, diaphoresis, fatigue, fever, malaise, weakness, others EENTM: reports: nose congestion; denies: blurred vision, double vision, ear bleeding, ear discharge, ear drainage, ear pain, ear ringing, eye pain, eye redness, hearing loss, mouth pain, mouth swelling, nasal discharge, nose bleeding, nose pain, photophobia, tearing, throat pain, throat swelling, voice changes, others Respiratory: denies: cough, hemoptysis, orthopnea, SOB at rest, shortness of breath, SOB with excertion, stridor, wheezing, others Cardiovascular: denies: chest pain, dizzy spells, diaphoresis, Dyspnea on exertion, edema, irregular heart beat, left arm pain, lightheadedness, palpitations, PND, syncope, others Gastrointestinal: denies: abdomen distended, abdominal pain, blood streaked bowels, constipated, diarrhea, dysphagia, difficulty swallowing, hematemesis, melena, nausea, poor appetite, poor fluid intake, rectal bleeding, rectal pain, vomiting, others Genitourinary: denies: burning, dysuria, flank pain, frequency, hematuria, incontinence, penile discharge, penile sore, pain, testicle pain, testicle swelling, urgency, others Neurological: denies: dizziness, fainting, headache, left sided numbness, left sided weakness, numbness, paresthesia, pre-existing deficit, right sided numbness, right sided weakness, seizure, speech problems, tingling, tremors, weakness, others Musculoskeletal: denies: back pain, gout, joint pain, joint swelling, muscle pain, muscle stiffness, neck pain, others Integumetry: denies: bruises, change in color, change in hair/nails, dryness, laceration, lesions, lumps, rash, wounds, others Allergic/Immunocompromised: denies: Difficulty Healing, Frequent Infections, Hives, Itching, others Hematologic/Lymphatic: denies: anemia, blood clots, easy bleeding, easy bruising, swollen glands, others Endocrine: denies: excessive hunger, excessive sweating, excessive thirst, excessive urination, flushing, intolerance to cold, intolerance to heat, unexplained weight gain, unexplained weight loss, others Psychiatric: denies: anxiety, bipolar disorder, depression, hopeless, panic disorder, schizophrenia, sleepless, suicidal, others All Other Systems: Reviewed and Negative Physical Exam General Appearance: No Apparent Distress HEENT: Normal ENT Inspection, PERRL/EOMI, Other (In his congestion) Neck: Full Range of Motion, Non-Tender, Normal, Normal Inspection Respiratory: Chest Non-Tender, Lungs Clear, No Accessory Muscle Use, No Respiratory Distress, Normal Breath Sounds Cardiovascular: No Edema, No JVD, No Murmur, No Gallop, Normal Peripheral Pulses, Regular Rate/Rhythm Breast Exam: Deferred Gastrointestinal: No Organomegaly, Non Tender, No Pulsatile Mass, Normal Bowel Sounds, Soft Genitalia: Deferred Pelvic: Deferred Rectal: Deferred Extremities: No calf tenderness, Normal capillary refill, Normal inspection, Normal range of motion, Non-tender, No pedal edema Neurologic: Alert, 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 Was a procedure done?: No Differential Dx Considerations may include: COVID-19, INFLUENZA, URI, PHARYNGITIS, SINUSITIS X-Ray, Labs, Meds, VS Vital Signs Date Time Temp Pulse Resp B/P (MAP) Pulse Ox O2 Delivery O2 Flow Rate FiO2 01/17/25 17:45 100 17 98 Room Air 01/17/25 17:45 97.8 100 17 184/118 (140) 98 97.8 01/17/25 16:20 Room Air* 0 21 01/17/25 16:17 97.8 100 17 184/105 98 97.8 X-Ray, Labs, Meds, VS Comment Course in the [facility] eventful patient came in with nasal congestion and not feeling was also swelling His physical exam is pretty normal except for nasal congestion Patient will be discharged home to follow up with his PCP Time of 1ST Reevaluation: 17:30 Reevaluation 1ST: Unchanged Patient Education/Counseling: Diagnosis, Treatment Family Education/Counseling: No Family Present SEPSIS Sepsis Screen Date sepsis recognized/suspect: Jan 17, 2025 Time Sepsis recognized/suspect: 1616 Recent Procedure: No On Antibiotic Therapy: No Respiratory Rate >20: No Heart Rate >90: Yes Temp<36 C (96.8 F) or >38.3 C: No SBP <90 or MAP <65 mmHG: No New Acute Mental Status Change: No Is the patient on CPAP, BIPAP,: No Vital Signs Date Time Temp Pulse Resp B/P (MAP) Pulse Ox O2 Delivery O2 Flow Rate FiO2 01/17/25 17:45 100 17 98 Room Air 01/17/25 17:45 97.8 100 17 184/118 (140) 98 97.8 01/17/25 16:20 Room Air* 0 21 01/17/25 16:17 97.8 100 17 184/105 98 97.8 Departure 1 Departure Time of Disposition: 17:20 Impression: Primary Impression: Nasal congestion Additional Impressions: Acute viral syndrome Uncontrolled hypertension Disposition: HOME / SELF CARE / HOMELESS Condition: Fair Additional Instructions: Push fluids and follow up with your PCP e-Prescriptions Promethazine HCl (Promethazine Hydrochlorid) 6.25 Mg/5 Ml Nakia 12.5 MG PO TID for 10 Days, #300 ML Prov: MARIBELL RASCON MD 01/17/25 Mometasone Furoate (Nasal) (Nasonex 24Hr) 50 Mcg/Act Spr 50 MCG NA DAILY for 10 Days, #1 SPRAY Prov: MARIBELL RASCON MD 01/17/25 Discharged With: Self Critical Care Note Critical Care Time?: No Stability Stability form required: No Heart Score Heart Score: Heart Score Response (Comments) Value History N/A 0 EKG N/A 0 Age <45 0 Risk Factors No known risk factors 0 Troponin N/A 0 Total 0 I personally scribed for MARIBELL RASCON MD ([email or web address]) on 01/17/25 at 17:14. Electronically submitted by Kelley Blancas ([email or web address]). MARIBELL RASCON MD Jan 17, 2025 17:14
[2025-01-17] MEDS ORDERED: PROM5SOL PO (17:23)
[2025-01-17] MEDS ORDERED: MOME50SP11 (17:23)
[2025-01-17 18:57] VITALS: BP 150/100; PULSE 89; RESP 20; TEMP 98; O2SAT 97
== END 2025-01-17 19:02 | disposition home or self-care (01) ==
LOC: ER 16:16
DX: B34.9 Viral infection, unspecified (principal); R09.81 Nasal congestion; I10 Essential (primary) hypertension; Z79.899 Other long term (current) drug therapy